=== PATIENT | female | born 1960 | race Hispanic/Latino ===

== ENCOUNTER 2021-05-18 12:00 | Inpatient (IN) | payer OTHER, MEDICARE ==
[~2021-05-18] VITALS: Ht 157.5 cm; Wt 119.3 kg
[2021-05-18 10:14] LABS: BASOPHILS % (AUTO) 0.8 % (0.0-5.0); EOSINOPHILS % (AUTO) 1.4 % (0.0-8.0); HEMATOCRIT 31.9 % (36-48); MEAN CORPUSCULAR HEMOGLOBIN 38.4 pg (27.0-33.0); MEAN CORPUSCULAR HGB CONC 32.6 g/dL (32.0-36.0); MEAN CORPUSCULAR VOLUME 117.7 fL (79-99); MONOCYTES % (AUTO) 14.1 % (3.0-13.0); NEUTROPHILS % (AUTO) 60.4 % (40.0-77.0); NUCLEATED RED BLOOD CELLS 0.6 % (0.0-0.19); PLATELET COUNT (AUTO) 376 K/uL (130-400); RED BLOOD CELL COUNT(AUTO) 2.71 MIL/uL (4.00-5.50); RED CELL DISTRIBUTION WIDTH 15.8 % (11.0-15.5); WHITE BLOOD COUNT (AUTO) 3.6 K/uL (4.8-10.8)
[2021-05-18 10:17] LABS: APPEARANCE,URINE Clear (CLEAR); BILIRUBIN,URINE Negative (NEGATIVE); COLOR,URINE Yellow (YELLOW); GLUCOSE, URINE (UA) Negative (NEGATIVE); KETONES,URINE Negative (NEGATIVE); LEUKOCYTE ESTERASE ,URINE Negative (NEGATIVE); NITRATE,URINE Negative (NEGATIVE); OCCULT BLOOD,URINE Negative (NEGATIVE); PH,URINE 5.5 (5.0-8.0); PROTEIN,URINE Negative (NEGATIVE); UROBILINOGEN,URINE 0.2 mg/dL (0.2-1.0)
[2021-05-18 10:23] LABS: INR 0.97 (0.85-1.15); PROTHROMBIN TIME 10.6 SEC (9.6-11.6)
[2021-05-18 10:43] LABS: CREATININE 1.1 mg/dL (0.5-1.5); POTASSIUM 4.7 mmol/L (3.5-5.1)
[2021-05-19 09:47] VITALS: BP 194/78
[2021-05-19] MEDS ORDERED: PRAV40TA3 PO (10:46)
[2021-05-19] MEDS ORDERED: LISI20TA24 PO (10:46)
[2021-05-19] MEDS ORDERED: SENN8.6T20 PO (10:46)
[2021-05-19] MEDS ORDERED: HYDR500C2 PO (10:46)
[2021-05-19] MEDS ORDERED: APIX5TAB PO (10:46)
[2021-05-19] MEDS ORDERED: AMIO200T68 PO (10:46)
[2021-05-19] MEDS ORDERED: SITA1TAB2 PO (10:46)
[2021-05-19] MEDS ORDERED: FERS325 PO (10:47)
[2021-05-20] VITALS (16 sets, daily range): BP systolic 142–179; BP diastolic 47–73
[2021-05-20] MEDS ORDERED: CEFAZOLIN SODIUM 1 GM VIAL IVP ONE (08:00)
[2021-05-20] MEDS ORDERED: MIDAZOLAM HCL 1 MG/ML 2ML VIAL IVPB ONE (08:48)
[2021-05-20] MEDS ORDERED: CEFAZOLIN SODIUM 1 GM VIAL ONE ×2 (09:38→10:59)
[2021-05-20] MEDS ORDERED: 0.9%NACL 1000ML 1,000 ML IV ONE (09:38)
[2021-05-20] MEDS ORDERED: ROPIVACAINE 0.5% 5MG/ML 30ML IJ ONE (10:45)
[2021-05-20] MEDS ORDERED: MIDAZOLAM HCL 1 MG/ML 2ML VIAL ONE (10:48)
[2021-05-20] MEDS ORDERED: PROPOFOL 10 MG/ML 20ML VIAL IV ONE (10:48)
[2021-05-20] MEDS ORDERED: GLYCOPYRROLATE 1 MG/5 ML SYRINGE ONE (10:48)
[2021-05-20] MEDS ORDERED: FENTANYL CITRATE PF 50 MCG/1 ML 2ML VIAL ONE ×2 (10:49→12:45)
[2021-05-20] MEDS ORDERED: ROCURONIUM 10MG/1ML SYR 10 MG/ML ML ONE (10:49)
[2021-05-20] MEDS ORDERED: FAMOTIDINE 20MG VIAL IV ONE (10:59)
[2021-05-20] MEDS ORDERED: DEXAMETHASONE SOD PHOSPHATE 4 MG/ML 1ML VIAL ONE (12:18)
[2021-05-20] MEDS ORDERED: PROPOFOL 1000 MG/100 ML 100 ML IV ONE (12:29)
[2021-05-20] MEDS ORDERED: LABETALOL 20MG VIAL IV ONE (12:48)
[2021-05-20] MEDS ORDERED: MORPHINE 2 MG SYG ONE (13:25)
[2021-05-20] MEDS ORDERED: MORPHINE 2 MG SYG IVP PRN (13:30)
[2021-05-20] MEDS ORDERED: TRAMADOL HCL 50 MG TABLET PO PRN (13:30)
[2021-05-20] MEDS: CEFAZOLIN SODIUM 3 GM in DEXTROSE 5%-WATER 100 ML IVP SCH ×2 (13:30→21:30)
[2021-05-20] MEDS ORDERED: HYDROCODONE/ACETAMINOPHEN 5/325 MG TAB PO PRN ×2 (13:30)
[2021-05-20] MEDS: 0.9%NACL 1000ML 1,000 ML IV SCH (14:26)
[2021-05-20] MEDS: KETOROLAC 15MG/ML VIAL (15MG/ML) IV PRN ×2 (15:34→22:07)
[2021-05-20] MEDS ORDERED: IPRATROPIUM/ALBUTEROL SULFATE 3 ML SOLUTION IH PRN (16:00)
[2021-05-20] MEDS ORDERED: GLUCAGON 1MG KIT 1 MG ML IM PRN (16:00)
[2021-05-20] MEDS ORDERED: DEXTROSE 50%-WATER 50 ML DISP.SYRIN IV PRN (16:00)
[2021-05-20 16:07] LABS: BASOPHILS % (AUTO) 0.3 % (0.0-5.0); EOSINOPHILS % (AUTO) 0.3 % (0.0-8.0); HEMATOCRIT 29.4 % (36-48); LYMPHOCYTES % (AUTO) 10.7 % (21.0-51.0); MEAN CORPUSCULAR HEMOGLOBIN 38.6 pg (27.0-33.0); MEAN CORPUSCULAR HGB CONC 32.3 g/dL (32.0-36.0); MEAN CORPUSCULAR VOLUME 119.5 fL (79-99); MONOCYTES % (AUTO) 7.7 % (3.0-13.0); NEUTROPHILS % (AUTO) 80.4 % (40.0-77.0); PLATELET COUNT (AUTO) 348 K/uL (130-400); RED BLOOD CELL COUNT(AUTO) 2.46 MIL/uL (4.00-5.50); RED CELL DISTRIBUTION WIDTH 16.6 % (11.0-15.5); WHITE BLOOD COUNT (AUTO) 6.7 K/uL (4.8-10.8)
[2021-05-20 16:20] LABS: ALBUMIN 3.5 g/dL (3.5-5.0); BILIRUBIN,TOTAL 0.2 mg/dL (0.2-1.0); CREATININE 1.1 mg/dL (0.5-1.5); POTASSIUM 4.5 mmol/L (3.5-5.1); TOTAL PROTEIN, SERUM 7.6 g/dL (6.0-8.3)
[2021-05-20] MEDS: CEFTRIAXONE 1G VIAL IVP SCH (16:20)
[2021-05-20] MEDS: BENZOCAINE/MENTH/CETYLPYRD CL 1 EACH LOZENGE MM PRN ×2 (16:25→20:22)
[2021-05-20] MEDS: INSULIN HUMULIN R 100 UNIT/ML 3ML SQ SCH ×2 (16:30→21:00)
[2021-05-20] MEDS ORDERED: DEXAMETHASONE 4 MG TAB PO SCH (16:30)
[2021-05-20] MEDS: ATORVASTATIN 10 MG TABLET PO SCH (20:28)
[2021-05-20] MEDS: HYDROXYUREA 500 MG CAP PO SCH (20:28)
[2021-05-20] MEDS: DEXAMETHASONE SOD PHOSPHATE 4 MG/ML 1ML VIAL IV SCH (21:52)
[2021-05-20] MEDS ORDERED: ONDANSETRON 4MG INJ IVP PRN (22:30)
[2021-05-21 00:04] VITALS: BP 149/58
[2021-05-21] MEDS: IPRATROPIUM/ALBUTEROL SULFATE 3 ML SOLUTION IH SCH ×5 (00:17→23:38)
[2021-05-21] MEDS: 0.9%NACL 1000ML 1,000 ML IV SCH ×2 (00:36→10:24)
[2021-05-21 04:04] VITALS: BP 139/58
[2021-05-21] MEDS: INSULIN HUMULIN R 100 UNIT/ML 3ML SQ SCH ×4 (06:30→20:53)
[2021-05-21 08:00] VITALS: BP 146/70
[2021-05-21] MEDS: AMIODARONE 200 MG TABLET PO SCH (08:05)
[2021-05-21] MEDS: HYDROXYUREA 500 MG CAP PO SCH ×2 (08:05→20:54)
[2021-05-21] MEDS: LISINOPRIL 20 MG TABLET PO SCH (08:06)
[2021-05-21] MEDS ORDERED: DEXAMETHASONE 4 MG TAB PO SCH ×2 (09:00)
[2021-05-21 12:00] VITALS: BP 143/54
[2021-05-21 13:22] LABS: HEMOGLOBIN A1C 6.9 % (4.0-6.0)
[2021-05-21] MEDS: METRONIDAZOLE 500MG/100ML BAG 100 ML IVPB SCH ×2 (14:19→22:07)
[2021-05-21 16:00] VITALS: BP 150/74
[2021-05-21] MEDS: CEFTRIAXONE 1G VIAL IVP SCH (16:17)
[2021-05-21] MEDS: KETOROLAC 15MG/ML VIAL (15MG/ML) IV PRN ×2 (16:17→22:07)
[2021-05-21 20:00] VITALS: BP 147/52
[2021-05-21] MEDS: ATORVASTATIN 10 MG TABLET PO SCH (20:54)
[2021-05-21] MEDS: DEXAMETHASONE SOD PHOSPHATE 4 MG/ML 1ML VIAL IV SCH (21:00)
[2021-05-22] VITALS: BP 156/70
[2021-05-22] MEDS: 0.9%NACL 1000ML 1,000 ML IV SCH (02:24)
[2021-05-22 04:00] VITALS: BP 154/74
[2021-05-22 04:52] LABS: BASOPHILS % (AUTO) 0.1 % (0.0-5.0); HEMATOCRIT 26.1 % (36-48); LYMPHOCYTES % (AUTO) 3.9 % (21.0-51.0); MEAN CORPUSCULAR HEMOGLOBIN 38.5 pg (27.0-33.0); MEAN CORPUSCULAR HGB CONC 32.2 g/dL (32.0-36.0); MEAN CORPUSCULAR VOLUME 119.7 fL (79-99); MONOCYTES % (AUTO) 4.4 % (3.0-13.0); NEUTROPHILS % (AUTO) 90.7 % (40.0-77.0); NUCLEATED RED BLOOD CELLS 0.7 % (0.0-0.19); PLATELET COUNT (AUTO) 320 K/uL (130-400); RED BLOOD CELL COUNT(AUTO) 2.18 MIL/uL (4.00-5.50); RED CELL DISTRIBUTION WIDTH 17.1 % (11.0-15.5); WHITE BLOOD COUNT (AUTO) 6.9 K/uL (4.8-10.8)
[2021-05-22 05:01] LABS: ALBUMIN 3.1 g/dL (3.5-5.0); BILIRUBIN,TOTAL 0.2 mg/dL (0.2-1.0); CREATININE 1.3 mg/dL (0.5-1.5); POTASSIUM 4.4 mmol/L (3.5-5.1); TOTAL PROTEIN, SERUM 7.4 g/dL (6.0-8.3)
[2021-05-22] MEDS: METRONIDAZOLE 500MG/100ML BAG 100 ML IVPB SCH ×3 (05:31→22:52)
[2021-05-22] MEDS: IPRATROPIUM/ALBUTEROL SULFATE 3 ML SOLUTION IH SCH ×2 (06:00→11:22)
[2021-05-22] MEDS: INSULIN HUMULIN R 100 UNIT/ML 3ML SQ SCH ×4 (06:06→21:00)
[2021-05-22 07:39] VITALS: BP 134/58
[2021-05-22] MEDS: LISINOPRIL 20 MG TABLET PO SCH (09:00)
[2021-05-22] MEDS: HYDROXYUREA 500 MG CAP PO SCH ×2 (09:00→22:50)
[2021-05-22] MEDS: AMIODARONE 200 MG TABLET PO SCH (09:00)
[2021-05-22 10:50] VITALS: BP 164/86
[2021-05-22] MEDS ORDERED: HEPARIN 25,000 UNITS/250ML D5W 250 ML IV PRN (12:00)
[2021-05-22] MEDS: IPRATROPIUM 0.5 MG/2.5 ML INH IH SCH ×3 (12:00→23:21)
[2021-05-22] MEDS ORDERED: LABETALOL 20MG SYG IV PRN (12:00)
[2021-05-22] MEDS ORDERED: PHARMACY COMMUNICATION MISC SCH ×2 (12:00→14:00)
[2021-05-22 12:21] LABS: INR 0.98 (0.85-1.15); PROTHROMBIN TIME 10.7 SEC (9.6-11.6)
[2021-05-22 12:22] LABS: PARTIAL THROMBOPLASTIN TIME 26.5 SEC (26.3-35.5)
[2021-05-22 12:53] LABS: % IRON SATURATION 15.7 % (22-44)
[2021-05-22] MEDS: CEFTRIAXONE 1G VIAL IVP SCH (15:17)
[2021-05-22 16:52] VITALS: BP 153/70
[2021-05-22] MEDS: HEPARIN 25,000 UNITS/250ML D5W 250 ML IV PRN (16:59)
[2021-05-22 17:33] LABS: HEMATOCRIT 27.2 % (36-48)
[2021-05-22 20:00] VITALS: BP 155/70
[2021-05-22] MEDS ORDERED: APIXABAN 5 MG TABLET PO SCH (21:00)
[2021-05-22] MEDS: ATORVASTATIN 10 MG TABLET PO SCH (22:51)
[2021-05-22] MEDS: DEXAMETHASONE SOD PHOSPHATE 4 MG/ML 1ML VIAL IV SCH (22:52)
[2021-05-22 23:02] LABS: INR 1.03 (0.85-1.15); PROTHROMBIN TIME 11.2 SEC (9.6-11.6)
[2021-05-22 23:19] LABS: PARTIAL THROMBOPLASTIN TIME 122.5 SEC (26.3-35.5)
[2021-05-23] VITALS: BP 154/66
[2021-05-23] MEDS: HEPARIN 25,000 UNITS/250ML D5W 250 ML IV PRN ×2 (00:08→06:43)
[2021-05-23 04:00] VITALS: BP 149/65
[2021-05-23] MEDS: METRONIDAZOLE 500MG/100ML BAG 100 ML IVPB SCH (04:49)
[2021-05-23 05:07] LABS: BASOPHILS % (AUTO) 0.2 % (0.0-5.0); HEMATOCRIT 25.8 % (36-48); LYMPHOCYTES % (AUTO) 4.3 % (21.0-51.0); MEAN CORPUSCULAR HEMOGLOBIN 36.8 pg (27.0-33.0); MEAN CORPUSCULAR HGB CONC 31.8 g/dL (32.0-36.0); MEAN CORPUSCULAR VOLUME 115.7 fL (79-99); MONOCYTES % (AUTO) 4.8 % (3.0-13.0); NEUTROPHILS % (AUTO) 90.2 % (40.0-77.0); NUCLEATED RED BLOOD CELLS 1.3 % (0.0-0.19); PLATELET COUNT (AUTO) 325 K/uL (130-400); RED BLOOD CELL COUNT(AUTO) 2.23 MIL/uL (4.00-5.50); RED CELL DISTRIBUTION WIDTH 16.8 % (11.0-15.5); WHITE BLOOD COUNT (AUTO) 6.2 K/uL (4.8-10.8)
[2021-05-23 05:26] LABS: BILIRUBIN,TOTAL 0.2 mg/dL (0.2-1.0); CREATININE 1.2 mg/dL (0.5-1.5); POTASSIUM 4.5 mmol/L (3.5-5.1); TOTAL PROTEIN, SERUM 7.2 g/dL (6.0-8.3)
[2021-05-23] MEDS: IPRATROPIUM 0.5 MG/2.5 ML INH IH SCH ×2 (06:00→11:15)
[2021-05-23] MEDS: INSULIN HUMULIN R 100 UNIT/ML 3ML SQ SCH ×2 (06:44→11:50)
[2021-05-23] MEDS ORDERED: JANUMET PO SCH (08:00)
[2021-05-23 08:07] VITALS: BP 143/58
[2021-05-23] MEDS: HYDROXYUREA 500 MG CAP PO SCH (08:58)
[2021-05-23] MEDS: AMIODARONE 200 MG TABLET PO SCH (08:59)
[2021-05-23] MEDS ORDERED: PANTOPRAZOLE 40 MG/VIAL IVP SCH (09:00)
[2021-05-23] MEDS: LISINOPRIL 20 MG TABLET PO SCH (09:00)
[2021-05-23] MEDS ORDERED: FERROUS SULFATE 325 MG TABLET.DR PO SCH (09:00)
[2021-05-23] MEDS ORDERED: SENNOSIDES 8.6 MG TABLET PO SCH (09:00)
[2021-05-23] MEDS ORDERED: CLIN-141 PO (10:16)
[2021-05-23] MEDS ORDERED: APIXABAN 5 MG TABLET PO SCH ×2 (10:30→21:00)
[2021-05-23 11:54] VITALS: BP 161/58
== END 2021-05-23 14:30 | disposition home or self-care (01) | DRG 919 ==
LOC: EDSTATUS 12:00 → DAHIP 05-20 08:47 → INTOOBSV 05-20 08:47 → OBSVTOIN 05-20 08:47 → 3BH 05-20 14:34
PROVIDERS: ADMIT Orthopaedic Surgery; ATTEND Orthopaedic Surgery
PROC: 5A09357 Assistance with Respiratory Ventilation, Less than 24 Consecutive Hours, Continuous Positive Airway Pressure (ICD-10-PCS; principal; 2021-05-21)
PROC: 5A09357 Assistance with Respiratory Ventilation, Less than 24 Consecutive Hours, Continuous Positive Airway Pressure (ICD-10-PCS; 2021-05-23)
DX: T88.4XXA Failed or difficult intubation, initial encounter (principal); J69.0 Pneumonitis due to inhalation of food and vomit; T84.033A Mechanical loosening of internal left knee prosthetic joint, initial encounter; Z68.42 Body mass index [BMI] 45.0-49.9, adult; J02.9 Acute pharyngitis, unspecified; E11.9 Type 2 diabetes mellitus without complications; J98.2 Interstitial emphysema; I10 Essential (primary) hypertension; E78.5 Hyperlipidemia, unspecified; E66.01 Morbid (severe) obesity due to excess calories; I48.91 Unspecified atrial fibrillation; Z96.652 Presence of left artificial knee joint; R13.10 Dysphagia, unspecified; Z20.822 Contact with and (suspected) exposure to COVID-19; M19.90 Unspecified osteoarthritis, unspecified site; Y83.8 Other surgical procedures as the cause of abnormal reaction of the patient, or of later complication, without mention of misadventure at the time of the procedure; Z79.01 Long term (current) use of anticoagulants; Y92.89 Other specified places as the place of occurrence of the external cause; Z83.3 Family history of diabetes mellitus; Z82.49 Family history of ischemic heart disease and other diseases of the circulatory system; Z80.1 Family history of malignant neoplasm of trachea, bronchus and lung; Z80.0 Family history of malignant neoplasm of digestive organs
CPT/HCPCS: 36415; 70450; 70490; 71045; 74230; 80048; 80053; 81003; 82270; 82728; 82948; 83036; 83540; 83550; 85014; 85018; 85025; 85610; 85730; 86850; 86900; 86901; 87071; 87088; 87205; 87635; 87641; 92610; 92611; 93005; 94640; 94664; C9113; G0378; J0690; J0696; J1100; J1644; J1815; J1885; J2250; J2405; J2704; J2795; J3010; J3490; J7030; J7060; J8540